=== PATIENT | female | born 1990 | race Two or more races ===

== ENCOUNTER 2021-11-06 19:07 | Emergency (ER) | payer OTHER | END 2021-11-06 22:48 | disposition home or self-care (01) | LOC: ER 19:07 | DX: U07.1 COVID-19 (principal); J11.1 Influenza due to unidentified influenza virus with other respiratory manifestations ==

== ENCOUNTER 2021-11-07 14:55 | Outpatient (CLI) | payer OTHER | END 2021-11-07 16:00 | disposition home or self-care (01) | LOC: ASH CLINIC 14:55 | PROVIDERS: ATTEND General Practice | DX: U07.1 COVID-19 (principal) ==